=== PATIENT | female | born 1965 | race Caucasian/White ===

== ENCOUNTER → 2021-09-18 | Day surgery (SDC) | payer OTHER ==
[~2021-09-18] VITALS: Ht 167.6 cm; Wt 109.3 kg
[~2021-09-18] MED LIST: AMLODIPINE BESYL5 MG PO; ATORVASTATIN CA40 MG PO; BELBUCA150 MCG BU; BELBUCA75 MCG BU; CENTRUM ADULTS1 EACH PO; CORGARD20 MG PO; CYMBALTA20 MG PO; DEXAMETHASONE2 MG PO; DIGOXIN250 MCG PO; DULOXETINE HCL20 MG PO; DULOXETINE HCL60 MG PO; FENOFIBRATE145 MG PO; FLONASE ALLER15.8 ML; GABAPENTIN100 MG PO; IBUPROFEN400 MG PO; LOSARTAN POTASS50 MG PO; MAG-OXIDE 400M400 MG PO; MEDROL 4MG DOSEP4 MG PO; METAXALONE800 MG PO; METFORMIN HCL500 M3 PO; NADOLOL40 MG PO; NORCO 5-325 TA1 EAC1 PO; PREGABALIN25 MG PO; PRILOSEC20 MG PO; PROCHLORPERAZIN10 M1 PO; ULTRAM50 MG PO
== END | disposition home or self-care (01) ==
LOC: FAS 11:11
DX: C25.9 Malignant neoplasm of pancreas, unspecified (principal); K82.4 Cholesterolosis of gallbladder; E04.1 Nontoxic single thyroid nodule; I10 Essential (primary) hypertension; E11.9 Type 2 diabetes mellitus without complications; G47.30 Sleep apnea, unspecified; K21.9 Gastro-esophageal reflux disease without esophagitis; D64.9 Anemia, unspecified; F17.210 Nicotine dependence, cigarettes, uncomplicated; Z99.89 Dependence on other enabling machines and devices; Z79.84 Long term (current) use of oral hypoglycemic drugs; Z79.899 Other long term (current) drug therapy; Z88.1 Allergy status to other antibiotic agents; Z91.013 Allergy to seafood; Z91.040 Latex allergy status
CPT/HCPCS: 71045; 76000; 93005; C1788; J0690; J1644; J2001; J2250; J2370; J2405; J2704; J3010; J7120

== ENCOUNTER 2021-10-30 12:17 | Emergency (ER) | payer OTHER ==
[2021-10-30] MEDS ORDERED: ELIQUIS5 MG PO (16:19)
== END 2021-10-30 16:35 | disposition home or self-care (01) ==
LOC: FER 12:17
DX: I82.401 Acute embolism and thrombosis of unspecified deep veins of right lower extremity (principal); F17.210 Nicotine dependence, cigarettes, uncomplicated; Z88.1 Allergy status to other antibiotic agents